=== PATIENT | male | born 1990 | race African-American/Black ===

== ENCOUNTER 2017-10-06 08:39 | Emergency (ER) | payer OTHER ==
[2017-10-06] MEDS: IBUPROFEN 600 MG TAB PO (09:45)
[2017-10-06] MEDS: HYDROCODONE/APAP (5/325) TAB PO (09:46)
== END 2017-10-06 10:45 | disposition home or self-care (01) ==
LOC: FTE 08:39
DX: M25.531 Pain in right wrist (principal); K08.89 Other specified disorders of teeth and supporting structures
CPT/HCPCS: 73110; 73110-RT; 73130-RT; 99284-25

== ENCOUNTER 2017-10-19 20:46 | Emergency (ER) | payer OTHER | END 2017-10-19 21:59 | disposition home or self-care (01) | LOC: E/R 20:46 | DX: Z76.0 Encounter for issue of repeat prescription (principal) | CPT/HCPCS: 99281; Z7502 ==

== ENCOUNTER 2017-11-04 17:18 | Emergency (ER) | payer OTHER ==
[2017-11-04] MEDS: HYDROCODONE/APAP (5/325) TAB PO (18:14)
== END 2017-11-04 18:35 | disposition home or self-care (01) ==
LOC: FTE 17:18
DX: K04.7 Periapical abscess without sinus (principal); K02.9 Dental caries, unspecified
CPT/HCPCS: 99284; Z7502

== ENCOUNTER 2017-11-06 13:31 | Emergency (ER) | payer OTHER ==
[2017-11-06] MEDS: CLINDAMYCIN 300 MG INJ IM (14:30)
[2017-11-06] MEDS: ONDANSETRON (ODT) 4 MG TAB ODT (14:30)
[2017-11-06] MEDS: OXYCODONE/ACETAMINOPHEN (5/325) TAB PO (14:30)
[2017-11-06] MEDS: NAPROXEN 500 MG TAB PO (16:02)
== END 2017-11-06 16:33 | disposition home or self-care (01) ==
LOC: FTE 13:31
DX: K04.7 Periapical abscess without sinus (principal)
CPT/HCPCS: 70486; 96372; 99285-25

== ENCOUNTER 2018-06-24 22:56 | Emergency (ER) | payer SELFPAY, OTHER | END 2018-06-24 23:12 | disposition left against medical advice (07) | LOC: E/R 22:56 | DX: Z53.21 Procedure and treatment not carried out due to patient leaving prior to being seen by health care provider (principal) | CPT/HCPCS: 93005 ==

== ENCOUNTER 2019-01-16 02:40 | Emergency (ER) | payer SELFPAY ==
[2019-01-16] MEDS: HYDROCODONE/APAP (5/325) TAB PO (03:12)
== END 2019-01-16 03:22 | disposition home or self-care (01) ==
LOC: FTE 02:40
DX: K08.89 Other specified disorders of teeth and supporting structures (principal)
CPT/HCPCS: 99283

== ENCOUNTER 2019-01-16 13:05 | Emergency (ER) | payer SELFPAY ==
[2019-01-16] MEDS ORDERED: CLINDAMYCIN 600 MG INJ IM (14:00)
[2019-01-16] MEDS: CLINDAMYCIN 300 MG INJ IM (14:06)
== END 2019-01-16 14:19 | disposition home or self-care (01) ==
LOC: FTE 13:05
DX: K08.89 Other specified disorders of teeth and supporting structures (principal)
CPT/HCPCS: 96372; 99284-25